=== PATIENT | female | born 1990 | race Hispanic/Latino ===

== ENCOUNTER 2017-09-23 18:06 | Emergency (ER) | payer BC ==
[2017-09-24 00:24] VITALS: BP 117/66; PULSE 66; TEMP 97.7; O2SAT 99
== END 2017-09-23 19:45 | disposition home or self-care (01) ==
LOC: H.EROB2 18:06
DX: O26.813 Pregnancy related exhaustion and fatigue, third trimester (principal); Z3A.31 31 weeks gestation of pregnancy

== ENCOUNTER 2017-11-22 01:12 | Emergency (ER) | payer BC ==
--- NOTE | 2017-11-22 01:28 | OBHP ---
Datetime: 09/23/2017 19:45 IP Adm Impression: , intrauterine IP Admit Plan: Observation/Evaluation; Discharge home Admit Comment, IP Provider: 26 yo EGA 31.1 presents to the [facility] due to decreased movement . She had her visit with Dr. Canchola today and recommended her to visit the [facility]. Reports: FM; Denies: VB, LOF, CTX ROS: Denies dizziness, headaches, blurred vision, CP/SOB/N/V, or dysuria pnc: Dr. Canchola; denies any significant events during this . pmhx: choledochocyst famhx: none soc: denies: smoking, alcohol, illicit drugs Surg: choledochocystectomy 2017 NKDA Meds: PNV General: pleasant, in no acute distress HEENT: normocephalic, PERRLA; AAOx3 Heart: no murmurs, regular rate and rhythm, S1, S2 normal. Lungs: clear to auscultation bilaterally, no wheezing Abdomen: nontender, gravid CVA: negative Lower extremities: negative for pitting edema 26 yo IUP 31.1 presents with decreased movement -NST reactive -Pt remained stable. -Pt d/c home with PTL precautions reviewed and to f/u with Dr. Canchola. Case dw Dr. Best Bradford MD PGY1 The patient was seen with resident I agree with the note Pelvic Type - PN: Not Done Extremities - PN: Normal Abdomen - PN: Normal Back - PN: Normal Breast - PN: Not Done Lungs - PN: Normal Heart - PN: Normal Thyroid - PN: Not Done Neurologic - PN: Normal HEENT - PN: Normal General - PN: Normal FHR - Baseline A Provider: 140 EGA AdmitDate IP: 31.1 Vital Signs Provider: Reviewed; Within Normal Limits IP Chief Complaint: Decreased movement; evaluation NICHD Variability Prov Fetus A: Moderate 6-25bpm NICHD Accel Fetus A IP Provider: 15X15 FHR Category Provider Fetus A: Category I NICHD Decel Fetus A IP Provider: None Genitourinary Exam: Normal DTRs - PN: Not Done
[2017-11-22] MEDS ORDERED: Phenaphthazine-PH Test Paper VI ONE (01:45)
--- NOTE | 2017-11-22 02:11 | OBHP ---
Datetime: 11/22/2017 01:59 IP Adm Impression: Term, intrauterine ; No Active Labor IP Adm Impression Other: No evidence of ruptured membranes IP Admit Plan: Observation/Evaluation; Discharge home Admit Comment, IP Provider: 26yo with IUP at 39+ wks presents here today c/o possible leakage o f fluid @ 11: 30pm. She denies VB or pelvic contractions. Patient could feel good movements PMHx: Nil of Note OBHx: SHx: Unremarkable. Looks well Heart: RRR Chest: Cta B/L Abd: Soft,NT, BS - present FHR- Category 1 Paguate- Irregular uterine activity Speculum exam: No gross pooling, Nitrazine Negative SVE: 0/20/-3 Assessment: IUP at 39wks NST Reactive Suspected Rupture of membranes not found Plan: D/c home F/U with Dr Canchola within 1 week Labor precautions given. Pelvic Type - PN: Adequate Extremities - PN: Normal Abdomen - PN: Normal Back - PN: Normal Breast - PN: Normal Lungs - PN: Normal Heart - PN: Normal Thyroid - PN: Normal Neurologic - PN: Normal HEENT - PN: Normal General - PN: Normal Presentation-Admit: Vertex FHR - Baseline A Provider: 120 Membranes, Provider: Intact Comments, ACOG Physical Exam: Speculum Exam: No gross pooling, Nitrazine test Negative Gestation - Est Wks by US: 39.5 Pool Provider: Negative Nitrazine Provider: Negative EGA AdmitDate IP: 39.5 IP Chief Complaint: Suspected ruptured membranes NICHD Variability Prov Fetus A: Moderate 6-25bpm NICHD Accel Fetus A IP Provider: 15X15 FHR Category Provider Fetus A: Category I Dilatation, Provider: 0 Effacement, Provider: 20 Station, Provider: -3 Genitourinary Exam: Normal DTRs - PN: Normal
== END 2017-11-22 02:05 | disposition home or self-care (01) ==
LOC: H.EROB2 01:12
DX: O36.8130 Decreased fetal movements, third trimester, not applicable or unspecified (principal); O47.03 False labor before 37 completed weeks of gestation, third trimester; Z3A.31 31 weeks gestation of pregnancy

== ENCOUNTER 2017-11-22 06:44 | Inpatient (IN) | payer BC ==
[2017-11-22 08:12] VITALS: BMI 34.9
[2017-11-22] MEDS ORDERED: Lactated Ringer's 1,000 ML IV ONE (08:12)
[2017-11-22] MEDS: Lactated Ringer's 1,000 ML IV SCH ×3 (08:20→21:20)
[2017-11-22] MEDS ORDERED: OXYTOCIN/0.9 % NS 20 UNIT/1,000 ML BAG IV SCH (08:45)
[2017-11-22 09:43] LABS: BASO % 0.2 % (0.0-2.0); HEMOGLOBIN 13.1 g/dL (12.0-16.0); LYMPH # 1.2 K/uL (1.0-4.3); LYMPH % 7.8 % (20.0-40.0); MEAN CELL VOLUME 89.1 fl (81.0-99.0); MEAN CORPUSCULAR HEMOGLOBIN 30.9 pg (27.0-31.0); MEAN CORPUSCULAR HGB CONC 34.7 g/dL (33.0-37.0); MEAN PLATELET VOLUME 10.9 fl (7.2-11.7); MONO # 0.8 K/uL (0.0-0.8); NEUT # 13.8 K/uL (1.8-7.0); NRBC % 0.1 % (0.0-0.0); PLATELET COUNT 187 K/uL (130-400); RBC 4.24 Mil/uL (3.80-5.20); RED CELL DISTRIBUTION WIDTH 13.7 % (11.5-14.5); WHITE BLOOD COUNT 15.9 K/uL (4.8-10.8)
[2017-11-22 12:18] LABS: BANDS 2 % (0-2); LYMPHOCYTE 7 % (20-50); MONOCYTE 3 % (0-10); NEUTROPHIL 88 % (42-75); PLATELET ESTIMATE NORMAL (NORMAL); TOTAL CELLS COUNTED 100
[2017-11-22] MEDS ORDERED: Fentanyl/Bupivacaine HCl 250 ML EPI ONE (12:33)
[2017-11-22] MEDS ORDERED: Oxytocin 30 UNIT 30 UNITS/500 ML BAG IV ONE (14:54)
--- NOTE | 2017-11-22 18:03 | OBADHP ---
Datetime: 11/22/2017 18:00 Presentation-Admit: Vertex FHR - Baseline A Provider: 140s Amniotic Fluid Color, Provider: Meconium, Particulate Membranes, Provider: Ruptured Contraction Comments Provider: Q 2-3 Gestation - Est Wks by US: 39.5 NICHD Variability Prov Fetus A: Moderate 6-25bpm NICHD Accel Fetus A IP Provider: 15X15 FHR Category Provider Fetus A: Category I NICHD Decel Fetus A IP Provider: None Dilatation, Provider: 9 Effacement, Provider: 100 Station, Provider: -2 Datetime: 11/22/2017 07:17 Admit Comment, IP Provider: 27 y/o F at 39.5 weeks GA with a VICTORINO 11/24/17 by 1st trim US, pres ent to [facility] c/o increase frequency of pelvic CTX's since 3 AM. CTX occurs every 3-5 minutes, painful and has progressively aggravated since last nigth. FM present. No VB or suspected LOF after being dis charge several hours ago. -All systems reviewed and negative except as above. -[facility] -Meds: PNV and Valtrex daily 500mg. -PN CLinic: [facility] -PN Labs: GBS POSITIVE, HIV neg, RPR neg, HBsAg neg, Rubella immune. -OB Hx: -PMHx: denied -PSHx: cholecystectomy and ?biliary duct extraction. -FHx: NC -SHx: Never smoker, no alcohol, no rec drugs. A/P 27 y/o F with IUP at 39.5 weeks GA, in active labor, GBS positive. --Admit to Labor and Delivery. --Initiate Labor protocol. --Initiate Penicillin for GBS prophylaxis. Case discussed with Dr Mohamud, OB personal coach. GTolentino PGY-2. Attending Note: Patient was seen and examined with the resident and I agree with the above. Pelvic Type - PN: Adequate Abdomen - PN: Normal Back - PN: Normal Breast - PN: Not Done Lungs - PN: Normal Heart - PN: Normal Thyroid - PN: Normal HEENT - PN: Normal General - PN: Normal Comments, ACOG Physical Exam: Physical exam: -GEN: AAOx3, NAD -HEENT: NC/AT, EOMI, moist mucous membranes. -NECK: good ROM -CV: S1 and S2 present -LUNGS: CTAB -ABD: gravid uterus. -PELVIS: no active lesion present. 4cm/90%/-2 -Bedside US: Cephalic presentation. IP Hx Assessment: The History has been Reviewed and is Current Vital Signs Provider: Reviewed IP Chief Complaint: Uterine contractions Genitourinary Exam: Normal EGA AdmitDate IP: 39.5 IP Adm Impression: Term, intrauterine IP Admit Plan: Admit to unit; Initiate labor protocol Datetime: 11/22/2017 01:59 IP Adm Impression Other: No evidence of ruptured membranes Extremities - PN: Normal Neurologic - PN: Normal Pool Provider: Negative Nitrazine Provider: Negative DTRs - PN: Normal
--- NOTE | 2017-11-22 18:05 | OBPN ---
Datetime: 11/22/2017 18:00 IP Progress Impression: Normal progression of labor; Reactive non-stress test IP Procedures: Sterile Vag Exam IP Progress Plan: Continue present management Membranes, Provider: Ruptured Amniotic Fluid Color, Provider: Meconium, Particulate Contraction Comments Provider: Q 2-3 FHR - Baseline A Provider: 140s Gestation - Est Wks by US: 39.5 Presentation-Admit: Vertex IP Progress Note Comment: IUP at 39+weeks in labor On Pitocin for labor augmentation PCN for GBS prophylaxis Plan: Continue Monitoring of labor. NICHD Accel Fetus A IP Provider: 15X15 FHR Category Provider Fetus A: Category I NICHD Variability Prov Fetus A: Moderate 6-25bpm Dilatation, Provider: 9 Effacement, Provider: 100 Station, Provider: -2 NICHD Decel Fetus A IP Provider: None Datetime: 11/22/2017 07:17 Vital Signs Provider: Reviewed Datetime: 11/22/2017 01:59 Pool Provider: Negative Nitrazine Provider: Negative
[2017-11-22] MEDS ORDERED: Sodium Chloride 0.9% 1,000 ML IV SCH (21:45)
[2017-11-22] MEDS ORDERED: ceFAZolin IV 2 gm in Dextrose 2 GM/50 ML BAG IVPB ONE ×2 (23:42→23:50)
[2017-11-22] MEDS ORDERED: Bupivacaine HCl 0.5% PF (30 ml) Inj ONE (23:55)
[2017-11-23] MEDS ORDERED: Succinylcholine 200 mg/10 ml Inj IV ONE (00:01)
[2017-11-23] MEDS ORDERED: Propofol 10 mg/ml Inj (20 ML) ONE (00:01)
[2017-11-23] MEDS ORDERED: ePHEDrine 50 mg/ml Inj ONE (00:11)
[2017-11-23] MEDS ORDERED: Morphine 5 mg/10 ml preservative-free Inj(Duramorph) ONE (00:45)
[2017-11-23] MEDS ORDERED: Oxycodone/Acetaminophen 5/325 mg Tab PO PRN ×5 (01:02→19:46)
[2017-11-23] MEDS ORDERED: DiphenhydrAMINE 50 mg/ml Inj IVP PRN ×2 (01:45→19:46)
[2017-11-23] MEDS ORDERED: Simethicone 80 mg Chewtab PO SCH (04:00)
[2017-11-23] MEDS: Lactated Ringer's 1,000 ML IV SCH ×2 (05:46→14:16)
[2017-11-23 06:06] LABS: HEMOGLOBIN 11.2 g/dL (12.0-16.0); MEAN CELL VOLUME 90.6 fl (81.0-99.0); MEAN CORPUSCULAR HEMOGLOBIN 30.9 pg (27.0-31.0); MEAN CORPUSCULAR HGB CONC 34.1 g/dL (33.0-37.0); RBC 3.62 Mil/uL (3.80-5.20); RED CELL DISTRIBUTION WIDTH 13.8 % (11.5-14.5); WHITE BLOOD COUNT 21.7 K/uL (4.8-10.8)
[2017-11-23] MEDS ORDERED: Multivitamin With Minerals Tab PO SCH (09:00)
[2017-11-23] MEDS ORDERED: Lactated Ringer's 1,000 ML IV SCH (19:46)
[2017-11-23] MEDS: Simethicone 80 mg Chewtab PO SCH (21:55)
[2017-11-23] MEDS ORDERED: ceFAZolin IV 2 gm in Dextrose 2 GM/50 ML BAG IVPB ONE (23:50)
[2017-11-24] MEDS: Simethicone 80 mg Chewtab PO SCH ×4 (05:20→21:20)
[2017-11-24] MEDS: Multivitamin With Minerals Tab PO SCH (08:29)
--- NOTE | 2017-11-24 10:25 | OBPPN ---
Datetime: 11/24/2017 10:22 PP Pain Prov: Within normal limits PP Nausea Prov: Denies PP Flatus Prov: Yes PP BM Prov: No PP Breasts Prov: Normal PP Heart Prov: Normal PP Lungs Prov: Normal PP Abdomen/Uterus Prov: Normal PP Lochia Prov: Normal PP Vulva/Perineum Prov: Normal PP CVA Tenderness Prov: Normal PP Extremities Prov: Normal PP C/S Incision Prov: Normal PP Progress Prov: Normal PP Impression Prov: Normal progression PP Progress Note Prov: She feels fine. Tolerated regular diet this AM. baby eating via bottle/tryi ng breast H/H A; S/P day 1 PLAN: cont postop care Vital Signs Provider PP: Reviewed; Within Normal Limits
[2017-11-25] MEDS: Simethicone 80 mg Chewtab PO SCH ×3 (06:34→16:14)
--- NOTE | 2017-11-25 07:50 | OBPPN ---
Datetime: 11/25/2017 07:43 PP Pain Prov: Within normal limits PP Nausea Prov: Denies PP Flatus Prov: Yes PP BM Prov: No PP Breasts Prov: Normal PP Heart Prov: Normal PP Lungs Prov: Normal PP Abdomen/Uterus Prov: Normal PP Lochia Prov: Normal PP Vulva/Perineum Prov: Normal PP CVA Tenderness Prov: Normal PP Extremities Prov: Normal PP C/S Incision Prov: Normal PP Impression Prov: Normal progression PP Plan Prov: Continue present management PP Progress Note Prov: She feels fine. She is able to walk and eat without difficulty A: S/P day 2 PLAN: cont postop care Vital Signs Provider PP: Within Normal Limits
[2017-11-25] MEDS: Multivitamin With Minerals Tab PO SCH (09:49)
[2017-11-25 23:38] VITALS: BP 132/72; PULSE 66; RESP 20; TEMP 98.1; O2SAT 100
--- NOTE | 2017-11-26 08:29 | OP ---
Copied To: Homar Canchola DO Attending MD: Homar Canchola DO PROCEDURE DATE: 11/23/2017 PREOPERATIVE DIAGNOSIS: bradycardia. POSTOPERATIVE DIAGNOSES: 1. bradycardia. 2. Loose nuchal cord. PROCEDURE: Primary low-transverse section via Pfannenstiel incision. SURGEON: Homar Canchola DO COMPUTER DISCOVERY TEACHER: Dr. Haro (ceo and president on-call). ANESTHESIA: General (Epidural was off at that time). ANESTHESIOLOGIST: Dr. Gill. OPERATIVE FINDINGS: Live delivered from cephalic presentation with one loose nuchal cord, thin meconium, Apgars scores of 5 and 9 given at 1 and 5 minutes respectively. Placenta was delivered intact manually. Uterine atony was noted. IV Pitocin and Methergine were given x1 dose. Ovaries and tubes appeared to be within normal limits grossly. All instruments, sponges, and needle accounted for. She remained hemodynamically stable throughout the procedure. DESCRIPTION OF PROCEDURE: The patient was brought into the operating room. She was placed in a supine position. She had compression boots on both lower extremities. Mcneal catheter in place and draining clear urine. She was draped and prepped in usual sterile manner. She was given IV antibiotics. Once we tested for her epidural, was noted to not have adequate anesthesia, decision was made to induce her under general anesthesia. She was induced by Dr. Gill. Then an incision was made using a scalpel in a Pfannenstiel fashion. The incision was then taken down to the underlying fascia. Using a second scalpel, the fascia was nicked in the midline and extended bilaterally using curved Turcios scissors. The inferior aspect of the fascia was grasped using two Arlene clamps, tented up, and the rectus muscle was both bluntly and sharply dissected. Using curved Turcios scissors, the same was done with the superior aspect of the fascia. In the midline superiorly, the rectus muscle was bluntly dissected. Peritoneum was tented up using 2 Cassidy clamps and then incised using Metzenbaum scissors and then this incision was then extended superiorly and inferiorly with direct visualization of bladder and intestines. Bladder blade was then inserted above the bladder line. Peritoneum was incised using Metzenbaum scissors and then extended bilaterally using Metzenbaum scissors. Bladder flap was created digitally. Bladder blade was then inserted behind the bladder flap. A low-transverse incision was made using a scalpel. Upon entering the uterus, thin meconium was noted. Incision was then extended bilaterally using bandage scissors. The infant's head was delivered atraumatically as possible. The remainder of the infant was then delivered. The cord was clamped and cut. The infant was immediately handed to the direct marketing analyst in attendance plus cord bloods were obtained. Placenta was delivered intact manually. Uterus was then exteriorized, cleared of debris and clots. A 0 Vicryl suture was used to close the first layer of the uterus. Some bogginess of the uterus was noted. IV Pitocin was given as well as Methergine 0.2 mg IM x1 dose. Second layer of the uterus was closed using 0 Vicryl suture imbricating the first layer. Good hemostasis was assured. Posterior cul-de-sac was noted to be clear of debris and clots. Ovaries and tubes appeared to be within normal limits grossly. Uterus was then placed back into the peritoneal cavity. Copious irrigation was performed. Hemostasis was assured at the level of the lower uterine segment. All equipments were removed and accounted for. A 0 Vicryl suture was used to approximate the peritoneum in a running fashion. Rectus muscle was noted to have good hemostasis. A 0 Vicryl suture was used to approximate the rectus muscle x3. In the fascia, there was noted to be a small opening, and this was closed using 0 Vicryl suture x2 in the midline in a [id number] fashion and this was noted to be intact. A 0 Vicryl suture was used to approximate the fascial layer in a running fashion. Irrigation was performed. Hemostasis was assured using electrocautery. A 2-0 plain suture was used to approximate the subcuticular layer x3. A 3-0 Vicryl suture was used to approximate the skin, Dermabond, Steri-Strips. A pressure bandage was applied. All equipments were removed and accounted for. She was successfully reversed from general anesthesia and brought to the recovery room in stable condition. Homar Canchola DO
== END 2017-11-25 19:30 | disposition home or self-care (01) | DRG 766 ==
LOC: H.EROB2 06:44 → H.L&D 08:12 → UNDOADMIN 08:24 → H.OB/GYN 11-23 04:00
PROVIDERS: ADMIT Obstetrics & Gynecology; ATTEND Obstetrics & Gynecology
PROC: 10D00Z1 Extraction of Products of Conception, Low, Open Approach (ICD-10-PCS; principal; 2017-11-22)
PROC: 4A1HXCZ Monitoring of Products of Conception, Cardiac Rate, External Approach (ICD-10-PCS; 2017-11-22)
DX: O76 Abnormality in fetal heart rate and rhythm complicating labor and delivery (principal); Z37.0 Single live birth; O77.0 Labor and delivery complicated by meconium in amniotic fluid; O69.81X0 Labor and delivery complicated by cord around neck, without compression, not applicable or unspecified; O62.2 Other uterine inertia; Z3A.39 39 weeks gestation of pregnancy